=== PATIENT | female | born 1965 | race Asian ===

== ENCOUNTER → 2016-10-31 | Outpatient (CLI) | payer BC ==
[~2016-10-31] MED LIST: ASPIRIN; ZONEGRAN100 MG
--- NOTE | ~2016-10-31 | MY29 ---
[facility] A Service of [facility] RADIOLOGY TEXT RESULTS PATIENT: SILVINO GARCIA [facility] 69 UNIT #: [id number] AGE: [address]: Lexis Roberson MD SEX: F ORDER DR: [id number] [facility] [address] [place], [place] [address] [id number] O MR#: [id number] Acc #: [id number] NAME: SILVINO GARCIA : 1965 SEX: F STUDY DATE/TIME: 10/31/2016 9:30 [facility] ROOM: STUDY DESCRIPTION: MY YURY SCREENING W/ CAD BILAT Attending Physician: Lexis Roberson M.D. Referring Physician: Lexis Roberson M.D. Ordering Physician: Lexis Roberson M.D. Primary Care Physician: Lexis Roberson M.D. MEDICAL IMAGING REPORT This report is preliminary unless electronic signature is present EXAM Bilateral digital screening mammogram with CAD DATE 10/31/2016 HISTORY No personal or family history of breast cancer or current complaints. COMPARISON Bilateral screening mammogram 09/21/2015, 09/19/2013, 09/16/2012. FINDINGS CC and MLO views were obtained of each breast utilizing digital technique and reviewed with an FDA-approved CAD device. Extremely dense fibroglandular tissue is present bilaterally which can limit sensitivity of mammography. Skin marker was placed over the left breast denoting skin lesion. The parenchymal pattern appears stable. No new or developing nodule, architectural distortion or clustered microcalcification is seen. IMPRESSION BIRADS 2. Benign findings. Routine bilateral screening mammogram is recommended in 1 year. Patients over the age of 40 are entered into a reminder system with target due date for the next mammogram. A result letter will also be sent to the patient. BIRADS: 2, benign findings. [facility] A Service of [facility] RADIOLOGY TEXT RESULTS PATIENT: SILVINO GARCIA [facility] 69 UNIT #: [id number] AGE: [address]: Lexis Roberson MD SEX: F ORDER DR: Dictated by... Izzy Mistry M.D. THIS IS AN ELECTRONICALLY VERIFIED REPORT Izzy Mistry M.D. at 11/05/2016 3:26 PM FERNANDO/ramirez TD: 10/31/2016 21:58 JOB #: [id number] MEDICAL IMAGING REPORT Page 1 of 1 COPY
== END | disposition home or self-care (01) ==
LOC: CWCC 09:04
DX: Z12.31 Encounter for screening mammogram for malignant neoplasm of breast (principal)
CPT/HCPCS: G0202